=== PATIENT | female | born 2000 | race Caucasian/White ===

== ENCOUNTER 2022-12-28 15:21 | Emergency (ER) | payer MEDICAID ==
[~2022-12-28] VITALS: Ht 162.6 cm; Wt 84.8 kg
[~2022-12-28 15:21] MED LIST: ALBU-150
[2022-12-28 15:41] VITALS: BP 114/70; PULSE 82; RESP 20; TEMP 98.8; O2SAT 98
[2022-12-28] MEDS ORDERED: KETOROLAC 30 MG/ML VIAL IM ONE (16:25)
[2022-12-28] MEDS ORDERED: NAPR-1704 PO (16:31)
[2022-12-28] MEDS ORDERED: CAPS1ADH5 TP (16:31)
[2022-12-28] MEDS ORDERED: CYCL-711 PO (16:31)
[2022-12-28] MEDS ORDERED: BACITRACIN OINT 500 UNITS/GM PKT TP ONE (17:30)
== END 2022-12-28 18:00 | disposition home or self-care (01) ==
LOC: MED 15:21
DX: S39.012A Strain of muscle, fascia and tendon of lower back, initial encounter (principal); J45.909 Unspecified asthma, uncomplicated; Z79.899 Other long term (current) drug therapy; Z88.8 Allergy status to other drugs, medicaments and biological substances; X58.XXXA Exposure to other specified factors, initial encounter; Y93.89 Activity, other specified; Y92.89 Other specified places as the place of occurrence of the external cause; Y99.8 Other external cause status
CPT/HCPCS: 81002; 81025; 96372; 99283; J1885

== ENCOUNTER 2023-02-22 16:27 | Emergency (ER) | payer MEDICAID ==
[~2023-02-22] VITALS: Ht 165.1 cm; Wt 72.6 kg
[~2023-02-22 16:27] MED LIST changes: +CAPS1ADH5 TP; +CYCL-711 PO; +NAPR-1704 PO
[2023-02-22 16:47] VITALS: BP 122/70; PULSE 96; RESP 18; O2SAT 99
[2023-02-22] MEDS ORDERED: KETOROLAC 30 MG/ML VIAL IM ONE (17:30)
[2023-02-22 18:23] LABS: APPEARANCE,URINE CLEAR (CLEAR); BILIRUBIN,URINE NEGATIVE (NEGATIVE); BLOOD, URINE NEGATIVE (NEGATIVE); COLOR,URINE YELLOW (YELLOW); LEUKOCYTE ESTERASE ,URINE NEGATIVE (NEGATIVE); NITRITE, URINE NEGATIVE (NEGATIVE); PROTEIN,URINE NEGATIVE (NEGATIVE); UGLUCOSE NEGATIVE (NEGATIVE); UROBILINOGEN,URINE 0.2 EU/dL (0.2 - 1)
[2023-02-22] MEDS ORDERED: IBUP-2213 PO (18:42)
[2023-02-22] MEDS ORDERED: CYCL-711 PO (18:42)
== END 2023-02-22 19:04 | disposition home or self-care (01) ==
LOC: MED 16:27
DX: S39.012A Strain of muscle, fascia and tendon of lower back, initial encounter (principal); J45.909 Unspecified asthma, uncomplicated; Z79.899 Other long term (current) drug therapy; Z79.1 Long term (current) use of non-steroidal anti-inflammatories (NSAID); Z88.8 Allergy status to other drugs, medicaments and biological substances; X58.XXXA Exposure to other specified factors, initial encounter; Y92.89 Other specified places as the place of occurrence of the external cause; Y93.89 Activity, other specified; Y99.8 Other external cause status
CPT/HCPCS: 72100; 81003; 81025; 96372; 99284; J1885; 99283

== ENCOUNTER 2023-03-16 05:15 | Emergency (ER) | payer MEDICAID ==
[~2023-03-16] VITALS: Ht 160 cm; Wt 108.9 kg
[~2023-03-16 05:15] MED LIST changes: +IBUP-2213 PO
[2023-03-16 05:23] VITALS: BP 135/90; PULSE 83; RESP 20; TEMP 98.4; O2SAT 99
[2023-03-16] MEDS ORDERED: ONDANSETRON 4 MG/2 ML VIAL IVP ONE (05:35)
[2023-03-16] MEDS ORDERED: NACL 0.9% 1,000 ML IV SCH (05:35)
[2023-03-16 06:00] LABS: APPEARANCE,URINE CLEAR (CLEAR); BILIRUBIN,URINE NEGATIVE (NEGATIVE); BLOOD, URINE 3+ (NEGATIVE); COLOR,URINE YELLOW (YELLOW); LEUKOCYTE ESTERASE ,URINE NEGATIVE (NEGATIVE); NITRITE, URINE NEGATIVE (NEGATIVE); PROTEIN,URINE NEGATIVE (NEGATIVE); UGLUCOSE NEGATIVE (NEGATIVE); UROBILINOGEN,URINE 0.2 EU/dL (0.2 - 1)
[2023-03-16] MEDS ORDERED: KETOROLAC 30 MG/ML VIAL IVP ONE (06:00)
[2023-03-16 06:03] LABS: BASOPHILS # (AUTO) 0.1 K/uL (0.00-0.22); BASOPHILS % (AUTO) 0.4 % (0.0-2.0); EOSINOPHILS # (AUTO) 0.2 K/uL (0-0.4); EOSINOPHILS % (AUTO) 1.3 % (0.0-4.0); HEMATOCRIT 35.5 % (36-48); HEMOGLOBIN 11.6 g/dL (12.0-16.0); LYMPHOCYTES # (AUTO) 2.3 K/uL (2.5-16.5); LYMPHOCYTES % (AUTO) 14.6 % (20.5-51.1); MEAN CORPUSCULAR HEMOGLOBIN 25 pg (27-31); MEAN CORPUSCULAR HGB CONC 33 g/dL (33-37); MEAN CORPUSCULAR VOLUME 77.4 fL (80-94); MONOCYTES # (AUTO) 0.6 K/uL (0.8-1.0); MONOCYTES % (AUTO) 3.7 % (1.7-9.3); NEUTROPHILS # (AUTO) 12.7 K/uL (1.8-7.7); PLATELET COUNT (AUTO) 282 K/uL (140-450); RED BLOOD CELL COUNT(AUTO) 4.58 MIL/uL (4.20-5.40); RED CELL DISTRIBUTION WIDTH 15.6 % (11.6-13.7); WHITE BLOOD COUNT (AUTO) 15.9 K/uL (4.8-10.8)
[2023-03-16 06:19] LABS: BACTERIA,URINE 10-30 (MOD) /HPF (None Seen); MUCUS,URINE 1+ /LPF (None Seen); SQUAMOUS EPITHELIAL CELL,UR 0-3 (FEW) /LPF (0-3 (FEW)); WBC,URINE 0-5 /HPF (0-5)
[2023-03-16 06:28] LABS: ANION GAP 14.9 (8-16); CALCIUM 8.7 mg/dL (8.5-10.1); CARBON DIOXIDE 24.9 mmol/L (21-32); POTASSIUM 3.8 mmol/L (3.5-5.1); TOTAL BILIRUBIN 0.2 mg/dL (0.0-1.0)
[2023-03-16] MEDS ORDERED: MORPHINE SULFATE 4 MG/ML SYR IVP ONE (06:35)
[2023-03-16] MEDS ORDERED: IBUP-2218 PO (08:18)
[2023-03-16] MEDS ORDERED: CEPH-588 PO (08:18)
[2023-03-16] MEDS ORDERED: ONDA-188 SL (08:18)
[2023-03-16 08:29] VITALS: BP 137/89; PULSE 81; RESP 15; O2SAT 99
== END 2023-03-16 09:00 | disposition home or self-care (01) ==
LOC: MED 05:15
DX: N39.0 Urinary tract infection, site not specified (principal); N20.0 Calculus of kidney; J45.909 Unspecified asthma, uncomplicated; Z88.8 Allergy status to other drugs, medicaments and biological substances; Z79.899 Other long term (current) drug therapy
CPT/HCPCS: 36415; 74176; 76856; 80053; 81001; 81025; 83690; 85025; 87086; 93976; 96361; 96374; 96375; 99285; J1885; J2270; J2405; J7030; Q0092